=== PATIENT | female | born 1975 | race Caucasian/White ===

== ENCOUNTER 2018-05-28 13:20 | Emergency (ER) | payer OTHER ==
[~2018-05-28] VITALS: Ht 162.6 cm; Wt 60.4 kg
[2018-05-28 13:34] VITALS: TEMP 37; Ht 162.6 cm; Wt 60.4 kg
[2018-05-28] MEDS ORDERED: SODIUM CHLORIDE 0.9% 500ML 500 ML IV STA (13:59)
[2018-05-28] MEDS ORDERED: HYDROmorphone INJ 1 MG/ML SYR IV ONE ×3 (14:00→18:00)
--- NOTE | 2018-05-28 14:08 | EMERGENCY ROOM VISIT NOTE ---
History First contact with patient: 13:46 Chief Complaint: ABDOMINAL PAIN Stated Complaint: CRAMPS FROM PERIOD Nursing Triage Summary: heavier than normal period this month with increased cramping pt reports tylenol at 1200 History of Present Illness The patient is a 42 year old female who presents to the Emergency Room with complaints of severe, constant, sharp, stabbing lower abdominal discomfort that started last night. The patient started with her menses 2 days ago. She has had problems with dysmenorrhea over the last several months. She is currently seeing a specialist in [place]. She was told that she had a diagnosis of endometriosis. She says that a pad is "lasting for a few minutes." She reports some clotting. She denies any fever, chills, nausea, vomiting or diarrhea. No urinary symptoms. She tried Tylenol with minimal relief of her symptoms. Review of Systems 10 system review performed and negative unless noted in HPI or below Past Medical/Surgical History RA Endometriosis Social History Smoking Status: Never Smoker Current/Historical Medications Scheduled Acetaminophen (Tylenol), 1 TAB PO Q8 Amoxicillin (Amoxil), 1 CAP PO 1 hr prior to dental Calcium Carbonate (Caltrate 600), 1 TAB PO BID Desonide 0.05% (Desowen 0.05%), 1 APPLN TOP BID Ferrous Sulfate (Kp Ferrous Sulfate), 1 TAB PO DAILY Folic Acid (Folvite), 1 TAB PO DAILY Multivit/Min/Iron/Fol Ac/Pren ( Vitamin), 1 TAB PO DAILY Prednisone (Prednisone), 1 MG PO BID Raloxifene Hcl (Evista), 1 TAB PO DAILY Ranitidine (Zantac), 150 MG PO DAILY Tofacitinib Citrate (Xeljanz), 1 TAB PO BID Vitamins C & E (Vitamin C & E), 1 TAB PO BID Scheduled PRN Tramadol (Ultram), 1 TAB PO TID PRN for Pain Miscellaneous Medications Naproxen (Naprosyn), 250 MG PO Physical Exam Vital Signs Date Time Temp Pulse Resp B/P (MAP) Pulse Ox O2 Delivery O2 Flow Rate FiO2 05/28/18 20:25 80 18 138/80 97 05/28/18 19:16 112 22 168/100 100 05/28/18 17:32 101 20 132/86 99 Room Air 05/28/18 15:48 96 18 128/79 98 Room Air 05/28/18 14:45 81 16 140/93 95 Room Air 05/28/18 13:34 37.0 72 20 158/95 99 Room Air Physical Exam VITALS: Vitals are noted on the nurse's note and reviewed by myself. Vital signs stable. GENERAL: 42-year-old female, hysterical and slightly hyperventilating, SKIN: The skin was without rashes, erythema, edema, or bruising. HEAD: Normocephalic atraumatic. EYES: Conjunctivae without injection, sclerae without icterus. Extraocular movements intact. MOUTH: Mucous membranes moist. NECK: Supple without nuchal rigidity.. No JVD. HEART: Regular rate and rhythm without murmurs gallops or rubs. LUNGS: Clear to auscultation bilaterally without wheezes, rales or rhonchi. No accessory muscle use. ABDOMEN: Positive bowel sounds x 4.Soft, diffuse tenderness to palpation in the lower abdomen, without organomegaly. No guarding or rebound tenderness. MUSCULOSKELETAL: No muscle atrophy, erythema, or edema noted. Strength 5/5 throughout. NEURO: Patient was alert and oriented to person place and time. Normal sensation to touch. No focal neurological deficits. Medical Decision & Procedures ER Provider Diagnostic Interpretation: Pelvic ultrasound IMPRESSION: 1. Technically limited study. The patient refused endovaginal scanning. 2. 5 cm posterior myometrial mass possibly representing a fibroid 3. Large bilateral ovarian masses, either solid or complex hemorrhagic Electronically signed by: Marciano Meneses M.D. 05/28/2018 5:25 PM Dictated Date/Time: 05/28/2018 5:17 PM The status of this report is Signed. Draft = Not yet reviewed or approved by Radiologist. Signed = Reviewed and approved by Radiologist. <AttendingPhy></AttendingPhy> <FamilyPhy>No Doctor, Assigned</FamilyPhy> < PrimaryPhy>No Doctor, Assigned</PrimaryPhy> <UnitNumber>[id number]</UnitNumber> <VisitNumber>[id number]</VisitNumber> <PatientName CT abdomen and pelvis with IV contrast IMPRESSION: 1. Bilateral adnexal masses measuring 11 cm and the right and 6.5 cm and the left. These are likely ovarian. In addition there is inhomogeneous cervical in myometrial enhancement. Gynecological consultation is recommended in follow-up. 2. Bilateral nephrolithiasis. Right-sided hydronephrosis and hydroureter likely secondary to mass effect from the patient's large right ovarian mass 3. No evidence of bowel obstruction. No evidence of free air. Electronically signed by: Marciano Meneses M.D. 05/28/2018 4:12 PM Dictated Date/Time: 05/28/2018 4:04 PM The status of this report is Signed. Draft = Not yet reviewed or approved by Radiologist. Signed = Reviewed and approved by Radiologist. Laboratory Results 05/28/18 14:05 Red Blood Count 4.55, Mean Corpuscular Volume 77.4, Mean Corpuscular Hemoglobin 24.8, Mean Corpuscular Hemoglobin Concent 32.1, Mean Platelet Volume 9.4, Neutrophils (%) (Auto) 86.8, Lymphocytes (%) (Auto) 5.6, Monocytes (%) (Auto) 7.1, Eosinophils (%) (Auto) 0.1, Basophils (%) (Auto) 0.1, Neutrophils # (Auto) 16.33, Lymphocytes # (Auto) 1.06, Monocytes # (Auto) 1.34, Eosinophils # (Auto) 0.02, Basophils # (Auto) 0.01 05/28/18 14:05 Test 05/28/18 14:05 White Blood Count 18.82 K/uL (4.8-10.8) Red Blood Count 4.55 M/uL (4.2-5.4) Hemoglobin 11.3 g/dL (12.0-16.0) Hematocrit 35.2 % (37-47) Mean Corpuscular Volume 77.4 fL (80-100) Mean Corpuscular Hemoglobin 24.8 pg (25-34) Mean Corpuscular Hemoglobin Concent 32.1 g/dl (32-36) Platelet Count 342 K/uL (130-400) Mean Platelet Volume 9.4 fL (7.4-10.4) Neutrophils (%) (Auto) 86.8 % Lymphocytes (%) (Auto) 5.6 % Monocytes (%) (Auto) 7.1 % Eosinophils (%) (Auto) 0.1 % Basophils (%) (Auto) 0.1 % Neutrophils # (Auto) 16.33 K/uL (1.4-6.5) Lymphocytes # (Auto) 1.06 K/uL (1.2-3.4) Monocytes # (Auto) 1.34 K/uL (0.11-0.59) Eosinophils # (Auto) 0.02 K/uL (0-0.5) Basophils # (Auto) 0.01 K/uL (0-0.2) RDW Standard Deviation 58.0 fL (36.4-46.3) RDW Coefficient of Variation 20.5 % (11.5-14.5) Immature Granulocyte % (Auto) 0.3 % Immature Granulocyte # (Auto) 0.06 K/uL (0.00-0.02) Ovalocytes 1+ Anion Gap 10.0 mmol/L (3-11) Est Creatinine Clear Calc Drug Dose 85.0 ml/min Estimated GFR () 116.1 Estimated GFR (Non- 100.2 BUN/Creatinine Ratio 14.1 (10-20) Calcium Level 8.5 mg/dl (8.5-10.1) Total Bilirubin 0.5 mg/dl (0.2-1) Aspartate Amino Transf (AST/SGOT) 10 U/L (15-37) Alanine Aminotransferase (ALT/SGPT) 16 U/L (12-78) Alkaline Phosphatase 66 U/L (45-117) Total Protein 7.5 gm/dl (6.4-8.2) Albumin 3.5 gm/dl (3.4-5.0) Globulin 4.0 gm/dl (2.5-4.0) Albumin/Globulin Ratio 0.9 (0.9-2) Human Chorionic Gonadotropin, Qual NEG (NEG) Medications Administered Medications (Trade) Dose Ordered Sig/Prashant Route Start Time Stop Time Status Last Admin Dose Admin Hydromorphone HCl (Dilaudid Inj) 1 mg ONE ONCE IV 05/28/18 14:00 05/28/18 14:01 DC 05/28/18 14:17 1 MG Sodium Chloride 500 ml @ 999 mls/hr Q31M STAT IV 05/28/18 13:59 05/28/18 14:29 DC 05/28/18 14:17 999 MLS/HR Potassium Chloride (Klor-Con M10) 60 meq NOW STAT PO 05/28/18 14:45 05/28/18 14:47 DC 05/28/18 15:44 60 MEQ Hydromorphone HCl (Dilaudid Inj) 1 mg ONE ONCE IV 05/28/18 15:45 05/28/18 15:46 DC 05/28/18 15:44 1 MG Hydromorphone HCl (Dilaudid Inj) 1 mg ONE ONCE IV 05/28/18 18:00 05/28/18 18:01 DC 05/28/18 18:24 1 MG Hydromorphone HCl (Dilaudid Inj) 0.5 mg UD PRN IV 05/28/18 19:15 05/28/18 20:34 DC 05/28/18 19:15 0.5 MG ED Course Patient was seen and examined Vital signs including blood pressure were reviewed medications list was verified with patient Labs were obtained, and a saline lock was established The patient was ordered Dilaudid 1 mg IV and 500 cc of normal saline Imaging was performed and reviewed Upon reevaluation, the patient was more comfortable, however she did require multiple additional doses of Dilaudid. We discussed her imaging. She voiced understanding. The patient was also seen and examined by my supervising physician who is in agreement with my plan The case was then discussed with Dr. Wade-HEAVY MACHINERY OPERATOR chief communications officer. She recommended transfer for the patient. I discussed this option with the patient. She was in agreement with transfer to [facility]. I spoke with Dr. Citlalli Ramirez, HEAVY MACHINERY OPERATOR at [facility]. She kindly accepted the patient. Transfer arrangements were made. The patient was transferred in stable condition Medical Decision Differential diagnosis: Dysmenorrhea, , anxiety, ovarian cyst mass, ovarian torsion, ectopic , endometriosis, uterine fibroids, ureteral stone among others were entertained This patient is a 42-year-old female that presents to the emergency department with severe dysmenorrhea and heavy vaginal bleeding. On exam, she was significantly uncomfortable and anxious in appearance. She had diffuse tenderness in the lower abdomen. The patient's workup reveals leukocytosis and mild anemia. The patient is on chronic Biologics and steroids for history of RA. Her imaging reveals bilateral large ovarian masses. The right ovarian mass is causing a fair amount of hydronephrosis. At this point, ultrasound did not show any convincing signs of torsion. This was discussed with HEAVY MACHINERY OPERATOR chief communications officer. They recommended that the patient be transferred to her specialist in [place]. Arrangements were made. Dr. Ramirez kindly accepted the patient, and she was transferred in stable condition This chart was completed in part utilizing [employer] Speech Voice Recognition software. Attempts were made to minimize the grammatical errors, random word insertions, pronoun errors and incomplete sentences. Any formal questions or concerns about the content, text or information contained within the body of this dictation should be directly addressed to the provider for clarification. [place] Drug Monitoring Program Search Results: patient reviewed within database (Regular monthly prescriptions for tramadol noted) Medication Reconcilliation Current Medication List: was personally reviewed by me Blood Pressure Screening Patient's blood pressure: Elevated blood pressure Blood pressure disposition: Elevated BP felt to be situational Consults Consulting Physician: Dr. Wade-HEAVY MACHINERY OPERATOR Additional Consults: Consulted Physician: Dr. Citlalli Ramirez-HEAVY MACHINERY OPERATOR [facility] Impression Primary Impression: Bilateral tubo-ovarian mass Departure Information Patient Instructions [facility]
[2018-05-28 14:25] LABS: BASO % 0.1 %; BASO ABS # 0.01 K/uL (0-0.2); EOS % 0.1 %; EOS ABS # 0.02 K/uL (0-0.5); HEMATOCRIT 35.2 % (37-47); HEMOGLOBIN 11.3 g/dL (12.0-16.0); IG# 0.06 K/uL (0.00-0.02); LYMPH % 5.6 %; LYMPH ABS # 1.06 K/uL (1.2-3.4); MEAN CELL VOLUME 77.4 fL (80-100); MEAN CORPUSCULAR HEMOGLOBIN 24.8 pg (25-34); MEAN CORPUSCULAR HGB CONC 32.1 g/dl (32-36); MEAN PLATELET VOLUME 9.4 fL (7.4-10.4); MONO % 7.1 %; MONO ABS # 1.34 K/uL (0.11-0.59); NEUT % 86.8 %; NEUT ABS # 16.33 K/uL (1.4-6.5); PLATELET COUNT 342 K/uL (130-400); RED CELL DISTRIBUTION WIDTH CV 20.5 % (11.5-14.5); WHITE BLOOD COUNT 18.82 K/uL (4.8-10.8)
[2018-05-28 14:43] LABS: ALBUMIN 3.5 gm/dl (3.4-5.0); CALCIUM 8.5 mg/dl (8.5-10.1); CREATININE 0.73 mg/dl (0.60-1.20); TOTAL PROTEIN 7.5 gm/dl (6.4-8.2)
[2018-05-28] MEDS ORDERED: POTASSIUM CHLORIDE 10 MEQ TABCR PO STA (14:45)
[2018-05-28] MEDS ORDERED: ACET-1256 PO (15:12)
[2018-05-28] MEDS ORDERED: RANI150T85 PO (15:12)
[2018-05-28] MEDS ORDERED: AMOX500C3 PO (15:12)
[2018-05-28] MEDS ORDERED: NAPR1TAB48 PO (15:12)
[2018-05-28] MEDS ORDERED: FERR1TAB13 PO (15:12)
[2018-05-28] MEDS ORDERED: PRENTAB26 PO (15:12)
[2018-05-28] MEDS ORDERED: RALO60TA30 PO (15:12)
[2018-05-28] MEDS ORDERED: TOFA1TAB PO (15:12)
[2018-05-28] MEDS ORDERED: TRAM-10 PO (15:12)
[2018-05-28] MEDS ORDERED: VITACAP25 PO (15:12)
[2018-05-28] MEDS ORDERED: FOLI1TAB8 PO (15:12)
[2018-05-28] MEDS ORDERED: DSWCR TOP (15:12)
[2018-05-28] MEDS ORDERED: CALCTAB5 PO (15:12)
[2018-05-28] MEDS ORDERED: PRD/1 PO (15:12)
[2018-05-28] MEDS ORDERED: OPTIRAY 320 IV PRN (15:30)
--- NOTE | 2018-05-28 16:14 | DIAGNOSTIC IMAGING REPORT ---
CT ABD/PELVIS IV CONTRAST ONLY CLINICAL HISTORY: Lower abdominal pain and leukocytosis. COMPARISON STUDY: None. TECHNIQUE: Following the IV administration of 93 mL of Optiray-320, CT scan of the abdomen and pelvis was performed from the lung bases to the proximal femurs. Images are reviewed in the axial, sagittal, and coronal planes. IV contrast was administered without complication. A dose lowering technique was utilized adhering to the principles of ALARA. CT DOSE: 279.01 mGy.cm FINDINGS: Lower chest: The heart is normal in size and configuration, without pericardial effusion. The lung bases and pleural spaces are clear. Liver: The contrast-enhanced liver is normal in size, contour, and attenuation. There is no intrahepatic biliary ductal dilatation. The hepatic veins and portal veins are patent. Gallbladder: Unremarkable. Spleen: Normal in size and attenuation. Pancreas: Unremarkable. Adrenal glands: Unremarkable. Kidneys: There are multiple bilateral renal calculi. There is right-sided hydronephrosis and hydroureter. No ureteral or bladder calculi are visualized. Bowel: There are no transition zones to indicate bowel obstruction. There is no acute diverticulitis. The appendix is not visualized with certainty. Peritoneum: There is no intraperitoneal free air or abdominal ascites. Vasculature: The abdominal aorta is normal in course and caliber. Adenopathy: None. Pelvic viscera: There is inhomogeneous cervical and myometrial enhancement. There are bilateral adnexal masses measuring 11 cm on the right and 6.5 cm and the left. These are likely ovarian. Gynecological consultation is recommended in follow-up. Skeletal structures: No destructive osseous lesions are seen. IMPRESSION: 1. Bilateral adnexal masses measuring 11 cm and the right and 6.5 cm and the left. These are likely ovarian. In addition there is inhomogeneous cervical in myometrial enhancement. Gynecological consultation is recommended in follow-up. 2. Bilateral nephrolithiasis. Right-sided hydronephrosis and hydroureter likely secondary to mass effect from the patient's large right ovarian mass 3. No evidence of bowel obstruction. No evidence of free air. Electronically signed by: Marciano Meneses M.D. 05/28/2018 4:12 PM Dictated Date/Time: 05/28/2018 4:04 PM
--- NOTE | 2018-05-28 16:27 | EMERGENCY ROOM VISIT NOTE ---
ED Visit Note First contact with patient: 13:46 Patient was seen by our PA/LOGISTICS ADMINISTRATOR. I was involved in the patient's care and did evaluate the patient myself. I was involved in the care throughout the ER stay. Patient presents with lower pelvic pain bilaterally. Workup here suggest large ovarian cysts on both the right and left side. Given the size of the cysts, OB/ PULLING UNIT OPERATOR is being emergently consulted. The patient is currently much more comfortable since being medicated.
--- NOTE | 2018-05-28 17:26 | DIAGNOSTIC IMAGING REPORT ---
EXAMINATION: PELVIC ULTRASOUND (transabdominal only) CLINICAL HISTORY: lower abd pain bad cramping heavy period COMPARISON STUDY: CT scan performed May 28, 2018 FINDINGS: The study is somewhat limited from a technical standpoint as the patient refused endovaginal scanning. The uterus measured 11.0 x 6.2 x 7.7 cm. There is a 5 cm posterior myometrial mass. This distorts the endometrium.. The endometrial stripe was difficult to discern. Unfortunately the patient refused endovaginal scanning. There is a large right adnexal mass measuring 11 x 8.6 x 7.7 cm. This likely represents the right ovary. There was some flow seen along the periphery. There is a large left adnexal mass measuring 6.9 x 6.2 x 6.2 cm. This likely represents the left ovary. There is some flow seen along the periphery. There was no evidence of pathologic free pelvic fluid. If further characterization of the uterus and ovarian masses is desired, an MRI could be considered in follow-up. Gynecological consultation is again recommended. IMPRESSION: 1. Technically limited study. The patient refused endovaginal scanning. 2. 5 cm posterior myometrial mass possibly representing a fibroid 3. Large bilateral ovarian masses, either solid or complex hemorrhagic Electronically signed by: Marciano Meneses M.D. 05/28/2018 5:25 PM Dictated Date/Time: 05/28/2018 5:17 PM
[2018-05-28] MEDS ORDERED: HYDROmorphone INJ 0.5 MG/0.5 ML SYR IV PRN (19:15)
[2018-05-28 20:25] VITALS: BP 138/80; PULSE 80; O2SAT 97
== END 2018-05-28 20:26 | disposition short-term general hospital (02) ==
LOC: C.EDB 13:22 → C.EDC 20:26
DX: N83.8 Other noninflammatory disorders of ovary, fallopian tube and broad ligament (principal); N80.9 Endometriosis, unspecified; N94.6 Dysmenorrhea, unspecified; M06.9 Rheumatoid arthritis, unspecified; Z79.899 Other long term (current) drug therapy; Z79.52 Long term (current) use of systemic steroids